=== PATIENT | female | born 1970 | race Caucasian/White ===

== ENCOUNTER 2020-11-09 11:57 | Emergency (ER) | payer MEDICAID, OTHER ==
[~2020-11-09] VITALS: Ht 165.1 cm; Wt 65.9 kg
[~2020-11-09 11:57] MED LIST: SUMA100T PO; TOPI25 PO
[2020-11-09 12:03] VITALS: BP 130/97
[2020-11-09] MEDS ORDERED: LIDOCAINE 5% TRANSDERMAL PATCH TD ONE (14:45)
[2020-11-09] MEDS ORDERED: KETOROLAC TROMETHAMINE 30 MG/ML VIAL IM ONE (14:45)
== END 2020-11-09 15:11 | disposition home or self-care (01) ==
LOC: EMS 11:59
DX: M62.838 Other muscle spasm (principal); M25.512 Pain in left shoulder
CPT/HCPCS: 96372; 99283; J1885